=== PATIENT | female | born 1975 | race Caucasian/White ===

== ENCOUNTER 2017-06-10 16:30 | Outpatient (CLI) | payer MEDICAID ==
[~2017-06-10] VITALS: Ht 157.5 cm; Wt 60.7 kg
[2017-06-10 16:45] VITALS: Ht 157.5 cm; Wt 60.7 kg
[2017-06-10 16:46] VITALS: BP 105/55
[2017-06-10] MEDS ORDERED: PREN1TAB17 PO (16:48)
[2017-06-10 17:28] LABS: ADD SCAN DIFF NO
[2017-06-10 17:30] LABS: BASOPHILS % 0.3 % (0.0-2.0); EOSINOPHILS % 0.4 % (0.0-7.0); HEMATOCRIT 36.1 % (37.0-47.0); HEMOGLOBIN 12.9 g/dl (12.0-16.0); LYMPHOCYTES % 14.5 % (15.0-51.0); MEAN CORPUSCULAR HEMOGLOBIN 31.8 pg (29.0-33.0); MEAN CORPUSCULAR HGB CONC 35.7 g/dl (32.0-37.0); MEAN CORPUSCULAR VOLUME 88.9 fl (82.0-101.0); MEAN PLATELET VOLUME 9.4 fl (7.4-10.4); MONOCYTE # 0.4 10^3/ul (0.3-0.9); MONOCYTES % 6.1 % (0.0-11.0); NEUTROPHIL # 5.3 10^3/ul (1.6-7.5); NEUTROPHILS % 78.4 % (39.0-77.0); PLATELET COUNT 168 10^3/UL (140-415); RED BLOOD COUNT 4.06 10^6/ul (4.20-5.40); RED CELL DISTRIBUTION WIDTH 13.6 % (11.5-14.5); WHITE BLOOD COUNT 6.8 10^3/ul (4.8-10.8)
[2017-06-10 17:37] LABS: ADD UMIC NO; UR ASCORBIC ACID NEGATIVE (NEGATIVE); UR BILIRUBIN (Dip) NEGATIVE (NEGATIVE); UR BLOOD (Dip) NEGATIVE (NEGATIVE); UR CLARITY CLEAR (CLEAR); UR COLOR STRAW (YELLOW); UR GLUCOSE (Dip) NEGATIVE (NEGATIVE); UR KETONES (Dip) NEGATIVE (NEGATIVE); UR LEUKOCYTE ESTERASE (Dip) NEGATIVE Leu/ul (NEGATIVE); UR NITRITE (Dip) NEGATIVE (NEGATIVE); UR SPECIFIC GRAVITY (Dip) 1.003 (1.003-1.030); UR TOTAL PROTEIN (Dip) NEGATIVE (NEGATIVE); UR UROBILINOGEN (Dip) NEGATIVE (NEGATIVE)
[2017-06-10 17:52] LABS: POTASSIUM 3.4 mmol/L (3.5-5.1)
--- NOTE | 2017-06-10 17:53 | RADRPT ---
PROCEDURE: Obstetrical ultrasound CLINICAL INDICATION: abdominal pain TECHNIQUE: Multiple sonographic images of the pelvis were obtained. The images were reviewed on a PACS workstation. COMPARISON: None FINDINGS: The cervix is closed with a length of 4.4 cm. There is a single viable intrauterine gestation. Cardiac activity is present with 147 beats per minute. There is a transverse presentation to maternal left. The placenta is anterior. There is no evidence for an abruption or placenta previa. There is a normal amount of amniotic fluid with the maximum vertical pocket of amniotic fluid of 5.8 cm. Measurements were made in order to determine age. The results are as follows (cm): BPD =5.06 HC =19.25 AC =16.53 FL =3.54 Estimated gestational age by ultrasound of approximately 21 weeks, 3 days. The estimated date of delivery by ultrasound is 10/18/2017. Estimated gestational age by LMP of approximately 21 weeks, 3 days. The estimated date of delivery by LMP is 10/18/2017. EFW = 421 grams (42nd percentile) IMPRESSION: Single viable intrauterine gestation of approximately 21 weeks, 3 days . The estimated date of delivery is 10/18/2017 . Dating by ultrasound is consistent with dating by LMP. Transverse presentation to maternal left. Normal amount of amniotic fluid. Estimated weight is in the 42nd percentile. Anterior placenta without evidence of an abruption or placenta previa. RPTAT: EE Physician Kvng Date Time Electronically viewed and signed by Physician Kvng on 06/10/2017 17:53 /
--- NOTE | 2017-06-10 19:46 | TRIAGE ---
OB Triage Datetime Report Generated by CPN: 06/10/2017 19:46 Datetime: 06/10/2017 18:34 Labor Evaluation Frequency: 0 Pattern: Normal: <= 5 Contractions in 10 Minutes Resting Tone [place]: Relaxed Pain Assessment Pain Scale: 5 Pain Presence: Intermittent Pain Type: Ache Pain Location: Abdomen Pain Goal: 0 Pain Relief Measures: Comfort Measures Datetime: 06/10/2017 16:54 Stage of : OB Triage Assessment Type: Triage Maternal Assessment Level of Consciousness: Fully Conscious DTR's/Clonus: DTRs 2+; No Clonus Headache: Denies Blurred Vision: No Respiratory Effort: Unlabored; Regular Rhythm; Equal Expansion Breath Sounds, Left: Clear and Equal Breath Sounds, Right: Clear and Equal Nausea/Vomiting: Denies RUQ Epigastric Pain: Denies Lower Extremities Edema: None Degree: None Upper Extremities Edema: None Degree: None Facial Edema: None Temperature Route: Oral Fall Risk Assessment History of Falling: (0) No Secondary Diagnosis: (0) No Ambulatory Aid: (0) Bedrest/Nurse Assist IV Therapy: (0) No Gait: (0) Normal/Bedrest/Immobile Mental Status: (0) Oriented to Own Ability Fall Score: 0 Fall Risk Score Definition: No Risk: No action required Labor Evaluation Frequency: 0 Monitor Mode: External Heart Rate FHR Baseline Rate: 150 Monitor Mode: External US Pain Assessment Pain Scale: 5 Pain Presence: Intermittent Pain Type: Cramping Pain Location: Abdomen Pain Goal: 0 Datetime: 06/10/2017 16:52 Time of Arrival: 06/10/2017 16:19 Arrived By: Wheelchair Arrived From: Emergency Dept Chief Complaint: C/O NAUSEA, DIAREHRREA Initial Plan: FHT, TATO,
[2017-06-10] MEDS ORDERED: ONDA4TAB14 PO (21:44)
--- NOTE | 2017-06-12 17:22 | CONS ---
Date/Time of Note Date/Time of Note DATE: 06/12/17 TIME: 17:06 Consultation Date/Type/Reason Admit Date/Time June 10, 2017 OB triage consult Reason for Consultation This patient is a 42 years old 4 para 3 who had old 3 previous deliveries by section her estimated date of confinement of September which makes her 21 weeks and 3 days now. She came to the OB triage complaining of a nausea vomiting diarrhea abdominal cramps She says she vomited 10 times. On examination she is a well-developed well-nourished lady at midterm her vital signs are basically stable; with blood pressure 100/55 pulse rate 60,, respiration 20, temperature 98.2 Her abdomen was soft no tenderness no rebound fundus was around 22 cm in measurement soft no contractions heart tone was normal Laboratory studies her urinalysis was normal no evidence of proteinuria. Her WBC was 6.8 hemoglobin 12.9 hematocrit 36 and the rest of the CBC is also normal Constitutional: other (Afebrile), No chills, No diaphoresis, No disoriented, No febrile, No improved, No no complaints, No poor po, No requiring IVF, No requiring O2 Eyes: No discharge, No no complaints, No other, No pain, No redness, No visual change ENT: No bleeding, No congestion, No discharge, No dysphagia, No no complaints, No other, No pain, No sore throat Respiratory: other (Lungs were clear), No cough, No no complaints, No pain, No pleuritic pain, No shortness of breath, No sputum, No wheezing Cardiovascular: other (Normal sinus rhythm), No chest pain, No edema, No lightheadedness, No no complaints, No orthopenea , No palpitations, No paroxysmal nocturnal dyspnea Gastrointestinal: other (No true abdominal tenderness bowel sounds are normal) Genitourinary: other (Due to lack of contractions pelvic exam was not performed ), No bleeding, No discharge, No dysuria, No flank pain, No hematuria, No no complaints Musculoskeletal: No back pain, No bone/joint pain, No neck pain, No no complaints, No other, No restricted range of motion, No swelling Skin: other (No sign of dehydration), No bruising, No erythema, No laceration, No no complaints, No pruritis, No rash, No skin lesions Neurologic: other (Normal knee-jerk reflex), No confusion, No dizziness, No focal-weakness, No headache, No no complaints , No seizure, No syncope Additional Comments An ultrasound study was done which was reported as normal intrauterine with heart rate of 1 47/min in transverse position placenta was anterior amniotic fluid was normal with the most vertical pocket of 5.8 cm. Estimated weight of was 421 Patient somewhat improved with hydration however due to continuation of diarrhea patient was sent to emergency room for further workup and care Social History Smoking Status: Never smoker Exam/Review of Systems Vital Signs Vitals Vital Signs Date Time Temp Pulse Resp B/P Pulse Ox O2 Delivery O2 Flow Rate FiO2 06/10/17 16:46 98.2 105/55 Room Air Results Result Diagram: 06/10/17 1715 06/10/17 1715 RASHAWN MORAN MD Jun 12, 2017 17:17
== END 2017-06-10 19:15 | disposition home or self-care (01) ==
LOC: OBT 16:30 → L-D 16:35 → OBT 19:15
DX: O21.0 Mild hyperemesis gravidarum (principal); Z3A.21 21 weeks gestation of pregnancy; O26.892 Other specified pregnancy related conditions, second trimester; R10.9 Unspecified abdominal pain; R19.7 Diarrhea, unspecified; O09.523 Supervision of elderly multigravida, third trimester
CPT/HCPCS: 76805; 80051; 81003; 85025; Z7500; G0463

== ENCOUNTER 2017-06-10 19:26 | Emergency (ER) | payer MEDICAID ==
[~2017-06-10] VITALS: Ht 162.6 cm; Wt 60.0 kg
[~2017-06-10 19:26] MED LIST: PREN1TAB17 PO
[2017-06-10 19:33] VITALS: Ht 162.6 cm; Wt 60.0 kg
[2017-06-10] MEDS ORDERED: SOD CHLORIDE 0.9% 1,000 ML IV ONE (20:00)
[2017-06-10] MEDS: ONDANSETRON 4 MG INJ IV STA ×2 (20:13→20:16)
--- NOTE | 2017-06-10 21:43 | ERD ---
ER Documentation Chief Complaint Date/Time DATE: 06/10/17 TIME: 21:34 Chief Complaint dirrhea/vomiting x 2 days, 21 weeks , cleared by ob HPI This pleasant 42-year-old female 21 weeks 3 days on ultrasound done today presents with pelvic pain, vomiting, and diarrhea. Patient has been cleared by OB. Urinalysis without evidence of leukocytosis, nitrates, or microscopic hematuria, CBC without evidence of anemia or acute infection, basic metabolic panel without electrolyte dysfunction. Patient reports symptoms 2 days. Denies fever, chills, chest pain. ROS All systems reviewed and are negative except as per history of present illness. Medications Home Meds Active Scripts Ondansetron (Ondansetron Odt) 4 Mg Tab.rapdis, 4 MG PO Q6H Y for NAUSEA AND/OR VOMITING, #10 TAB Prov:ROSHNI,ASHER 06/10/17 Reported Medications Vit-Iron Fumarate-FA ( Tablet) 1 Each Tablet, 1 TAB PO DAILY, TAB 06/10/17 Allergies Allergies: Coded Allergies: No Known Drug Allergies (Verified Allergy, Unknown, 06/10/17) PMhx/Soc Medical and Surgical Hx: pt denies Medical Hx, pt denies Surgical Hx Hx Alcohol Use: No Hx Substance Use: No Hx Tobacco Use: No Smoking Status: Never smoker Physical Exam Vitals Vital Signs Date Time Temp Pulse Resp B/P Pulse Ox O2 Delivery O2 Flow Rate FiO2 06/10/17 21:52 98.3 61 20 102/51 100 Room Air 06/10/17 19:33 98.0 63 20 110/53 100 Physical Exam Const: Well-hydrated well-nourished, no acute distress Head: Atraumatic Eyes: Normal Conjunctiva, PERRLA, EOMI ENT: Normal External Ears, Nose and Mouth mucous membranes moist Neck: Full range of motion..~ No meningismus. Resp: Respirations even and unlabored, no respiratory distress Cardio: Abd: 's abdomen Skin: Back: Ext: Neur: Awake and alert Psych: Normal Mood and Affect Results 24 hrs Current Medications Medications (Trade) Dose Ordered Sig/Dank Route PRN Reason Start Time Stop Time Status Last Admin Dose Admin Sodium Chloride (NS) 1,000 ml @ 1,000 mls/hr Q1H ONCE IV 06/10/17 20:00 06/10/17 20:59 DC 06/10/17 20:13 Ondansetron HCl (Zofran Inj) 4 mg ONCE STAT IV 06/10/17 19:48 06/10/17 19:49 DC Procedures/MDM PROCEDURE: Obstetrical ultrasound CLINICAL INDICATION: abdominal pain TECHNIQUE: Multiple sonographic images of the pelvis were obtained. The images were reviewed on a PACS workstation. COMPARISON: None FINDINGS: The cervix is closed with a length of 4.4 cm. There is a single viable intrauterine gestation. Cardiac activity is present with 147 beats per minute. There is a transverse presentation to maternal left. The placenta is anterior. There is no evidence for an abruption or placenta previa. There is a normal amount of amniotic fluid with the maximum vertical pocket of amniotic fluid of 5.8 cm. Measurements were made in order to determine age. The results are as follows (cm): BPD = 5.06 HC = 19.25 AC = 16.53 FL = 3.54 Estimated gestational age by ultrasound of approximately 21 weeks, 3 days. The estimated date of delivery by ultrasound is 10/18/2017. Estimated gestational age by LMP of approximately 21 weeks, 3 days. The estimated date of delivery by LMP is 10/18/2017. EFW = 421 grams (42nd percentile) IMPRESSION: Single viable intrauterine gestation of approximately 21 weeks, 3 days . The estimated date of delivery is 10/18/2017 . Dating by ultrasound is consistent with dating by LMP. Transverse presentation to maternal left. Normal amount of amniotic fluid. Estimated weight is in the 42nd percentile. Anterior placenta without evidence of an abruption or placenta previa. RPTAT: EE Physician Kvng Date Time Electronically viewed and signed by Physician Kvng on 06/10/2017 17:53 RA/ CC: RASHAWN MORAN MD This 42-year-old female presents to emergency department for evaluation of diarrhea, vomiting, and abdominal pain. Patient has been cleared by OB, no concern for demise, or miscarriage. Patient hydrated with a liter of normal saline, nausea treated with Zofran, patient reports improvement of symptoms after intervention, plan to discharge patient home with Zofran 4 mg every 6 hours as needed nausea, brat diet for diarrhea, bananas, toast, rice, and applesauce, increase fluids, increase rest. Return to emergency department for worsening of abdominal pain, vaginal bleeding, symptoms not responding to treatment. I feel the patient is stable for discharge at this time. I have discussed results, examination findings, the treatment plan with the patient and family present prior to discharge. Indications for emergent reevaluation, side effects of medication were also discussed. All questions were answered. Patient verbalizes understanding and agrees with plan of care. Departure Diagnosis: Primary Impression: Diarrhea with dehydration Condition: Good Patient Instructions: Dehydration, Treating Diarrhea Additional Instructions: Thank you for for coming to [facility] for your care today. Please ask your nurse or provider if you have questions about your care today and do not leave until all your questions have been answered. Please use any medications given as directed and follow-up with your doctor (or the doctor you were referred to) in the next 2-3 days. If you do not have a primary care doctor you may follow up at the [facility] (listed below). You may also use motrin and tylenol as needed for fever and/or pain unless instructed otherwise by your provider or nurse. Indications for more urgent follow-up have been discussed, but you may return to the Emergency Department at ANY time for any worrisome or worsening symptoms. If you have abdominal pain, please know that no test or exam you received is perfect and you should follow up within 8 hours for continued pain. If you had any imaging studies today, such as an X-Ray or CT Scan, these studies will be reviewed later by a radiologist. You will be called if there are important findings that were not identified today, so make sure the contact information you provided at registration is correct. If you received any narcotic pain control medicine today, such as Vicodin, Morphine or Dilaudid, your coordination and judgment may be affected for a number of hours. Please do not drive or operate heavy machinery, and you may want someone to assist you at home. If you were given a prescription for narcotic medication, be aware that it is very addictive- use sparingly and only if necessary. ASHER BARAKAT Jun 10, 2017 21:42
[2017-06-10] MEDS ORDERED: ONDA4TAB14 PO (21:44)
[2017-06-10 21:52] VITALS: BP 102/51; PULSE 61; RESP 20; TEMP 98.3
== END 2017-06-10 21:52 | disposition home or self-care (01) ==
LOC: FTE 19:26
DX: O99.89 Other specified diseases and conditions complicating pregnancy, childbirth and the puerperium (principal); R19.7 Diarrhea, unspecified; O99.282 Endocrine, nutritional and metabolic diseases complicating pregnancy, second trimester; E86.0 Dehydration; Z3A.21 21 weeks gestation of pregnancy
CPT/HCPCS: J2405; J7030